=== PATIENT | female | born 1975 | race African-American/Black ===

== ENCOUNTER 2018-05-01 07:21 | Outpatient (CLI) | payer OTHER ==
--- NOTE | 2018-05-01 10:13 | ULT ---
ULTRASOUND PELVIC ULTRASOUND TRANSVAGINAL DOPPLER DUPLEX: DATE: 05/01/18. HISTORY: Left pelvic pain in a 42-year-old female. TECHNIQUE: Transabdominal transducer used to evaluate intrapelvic contents using the urinary bladder as an acous tic window. Endovaginal transducer used to visualize intrapelvic contents in greater detail. Color fl ow Doppler and Pulsed Doppler spectral waveform analysis of ovaries. FINDINGS: Uterus: surgically absent. Right ovary: 3 x 2.5 x 2.5 cm. Left ovary: 2.5 x 1.5 x 2 cm. Follicles visualized in both ovaries. No ovarian cysts (defined as 2 cm or larger). Blood flow demonstrated in both ovaries by Doppler. No significant free fluid identified. IMPRESSION: 1. Status post hysterectomy. 2. Otherwise, negative. GEORGIE Foy POS: [place]
--- NOTE | 2018-05-01 10:14 | ULT ---
ULTRASOUND ABDOMEN COMPLETE: DATE: 05-01-18 HISTORY: 42-year-old female with left lower quadrant abdominal pain. FINDINGS: The gallbladder has normal wall thickness and has no evidence of gallstones or sludge. The hepatic e chogenicity is normal. The kidneys have normal echogenicity, and there is no hydronephrosis. There is no splenomegaly. There is no abdominal aortic aneurysm. No free fluid is identified. The inferi or vena cava is visualized. The pancreas is visualized, although ultrasound is relatively insensitiv e for pancreatic pathology compared to CT and MRI. There is no biliary dilation. The common duct ca liber is 2 mm. IMPRESSION: Normal. [email or web address] POS: [facility]
== END 2018-05-01 07:22 | disposition home or self-care (01) ==
LOC: ULT 07:21
PROVIDERS: ATTEND Family Medicine
DX: R10.32 Left lower quadrant pain (principal); K59.00 Constipation, unspecified; Z90.710 Acquired absence of both cervix and uterus
CPT/HCPCS: 76700; 76856